=== PATIENT | male | born 1940 | race Caucasian/White ===

== ENCOUNTER 2025-04-20 09:20 | Inpatient (IN) ==
[2025-04-20 09:54] LABS: Basophils # (Auto) 0.04 K/mcL (0.00-0.30); Basophils % (Auto) 0.1 % (0.0-2.0); Eosinophils # (Auto) 0.11 K/mcL (0.00-0.70); Eosinophils % (Auto) 0.3 % (0.0-7.0); Hematocrit 28.6 % (40.1-51.0); Hemoglobin 8.9 g/dL (13.7-17.5); Lymphocytes # (Auto) 1.16 K/mcL (1.50-4.80); Lymphocytes % (Auto) 3.7 % (15.5-49.0); Mean Corpuscular HGB Conc 31.1 g/dL (31.0-36.0); Monocytes # (Auto) 1.41 K/mcL (0.10-0.90); Monocytes % (Auto) 4.5 % (1.0-12.0); Neutrophils % (Auto) 90.1 % (38.0-78.0); Platelet Count 310 K/mcL (140-440); RBC 3.06 M/mcL (4.63-6.08); WBC 31.5 K/mcL (4.5-11.0)
[2025-04-20 09:55] LABS: INR 1.2 (0.9-1.1); Prothrombin Time 16.1 sec (11.9-14.5)
[2025-04-20 10:09] LABS: ALT/SGPT 22 U/L (<40); AST/SGOT 24 U/L (<40); Albumin 3.1 gm/dL (3.2-5.2); Albumin/Globulin Ratio 0.8 (1.0-2.3); Alkaline Phosphatase 199 U/L (39-117); Anion Gap 11.0 (8.0-16.0); Bilirubin,Total 0.7 mg/dL (0.1-1.0); Blood Urea Nitrogen 52 mg/dL (8-23); Calcium 10.8 mg/dL (8.6-10.4); Carbon Dioxide 19 mmol/L (22-30); Chloride 99 mmol/L (96-108); Globulin 3.9 gm/dL (2.2-3.7); Glucose 97 mg/dL (70-105); Potassium 5.4 mmol/L (3.3-5.1); Sodium 129 mmol/L (133-145)
[2025-04-20] MEDS: HYDROmorphone 0.5 MG/0.5 ML SYRINGE IV ONE (10:16)
[2025-04-20] MEDS: CEFEPIME 2 GM VIAL IV ONE (11:42)
[2025-04-20 11:54] LABS: Bacteria,Urine Few /hpf (0); Bilirubin,Urine Negative (Negative); Color,Urine Yellow; Glucose,Urine (UA) Negative (Negative); Ketones,Urine Negative (Negative); Leukocyte Esterase,Urine Small /uL (Negative); PH,Urine 7.0 (5.0-9.0); Protein,Urine Negative (Negative); Specific Gravity,Urine 1.010 (1.000-1.035); Urobilinogen,Urine Normal
[2025-04-20] MEDS ORDERED: PROPOFOL 200 MG/20 ML VIAL IV ONE (12:04)
[2025-04-20] MEDS ORDERED: fentaNYL 100 MCG/2 ML VIAL ONE (12:04)
[2025-04-20] MEDS ORDERED: LIDOCAINE 2% PF 5 ML VIAL ONE (12:06)
[2025-04-20] MEDS ORDERED: TRANEXAMIC ACID 1,000 MG/10 ML VIAL ONE (12:06)
[2025-04-20] MEDS ORDERED: GLYCOPYRROLATE 0.2 MG/ML VIAL IV ONE (12:06)
[2025-04-20] MEDS ORDERED: ONDANSETRON 4 MG/2 ML VIAL ONE (12:06)
[2025-04-20] MEDS ORDERED: DEXAMETHASONE 10 MG/ML VIAL ONE (12:06)
[2025-04-20] MEDS ORDERED: FAMOTIDINE/PF 20 MG/2 ML VIAL IV ONE (12:07)
[2025-04-20] MEDS ORDERED: MAGNESIUM SULFATE 2 GM/50 ML BAG IV ONE (12:08)
[2025-04-20] MEDS: PIPERACILLIN SODIUM/TAZOBACTAM 2.25 GM in DEXTROSE 5% IN WATER 50 ML IV ONE (12:28)
[2025-04-20] MEDS ORDERED: 0.9 % SODIUM CHLORIDE 100 ML IV ONE (12:33)
[2025-04-20] MEDS ORDERED: VASOPRESSIN 20 UNIT/ML VIAL ONE (12:33)
[2025-04-20] MEDS ORDERED: PHENYLephrine 1 MG/10 ML SYRINGE (ANEST) ONE ×2 (12:45→14:17)
[2025-04-20] MEDS ORDERED: SUGAMMADEX SODIUM 200 MG/2 ML VIAL IV ONE (13:01)
[2025-04-20] MEDS ORDERED: ROCURONIUM 10 MG/ML ML IV ONE (13:02)
[2025-04-20] MEDS ORDERED: HYDROmorphone 0.5 MG/0.5 ML SYRINGE ONE (13:10)
[2025-04-20] MEDS: ceFAZolin 2 GM in DEXTROSE 5% IN WATER 50 ML IV SCH ×2 (13:15→21:52)
[2025-04-20 13:20] LABS: Bacteria,Urine Few /hpf (0); Bilirubin,Urine Negative (Negative); Color,Urine Yellow; Glucose,Urine (UA) Negative (Negative); Ketones,Urine Negative (Negative); Leukocyte Esterase,Urine Moderate /uL (Negative); PH,Urine 6.0 (5.0-9.0); Protein,Urine Negative (Negative); Specific Gravity,Urine 1.010 (1.000-1.035); Urobilinogen,Urine Normal
[2025-04-20] MEDS ORDERED: NALOXONE HCL 0.4 MG/ML VIAL IV PRN (15:06)
[2025-04-20] MEDS ORDERED: LACTATED RINGERS 250 ML IV PRN (15:06)
[2025-04-20] MEDS ORDERED: fentaNYL 100 MCG/2 ML VIAL IV PRN (15:06)
[2025-04-20] MEDS ORDERED: IPRATROPIUM/ALBUTEROL 3 ML AMPUL.NEB NEB PRN (15:06)
[2025-04-20] MEDS ORDERED: HYDROmorphone 0.5 MG/0.5 ML SYRINGE IV PRN (15:06)
[2025-04-20] MEDS ORDERED: BENZOCAINE/MENTHOL 1 LOZENGE PO PRN ×2 (15:06→16:21)
[2025-04-20] MEDS ORDERED: ONDANSETRON 4 MG/2 ML VIAL IV PRN ×2 (15:06→17:22)
[2025-04-20] MEDS: VANCOMYCIN 1 GM VIAL TOPICAL SCH ×2 (15:09→15:22)
[2025-04-20] MEDS: ACETAMINOPHEN 1,000 MG/100 ML BAG IV ONE (16:02)
[2025-04-20] MEDS: METHOCARBAMOL 1,000 MG/10 ML VIAL IV PRN (16:04)
[2025-04-20 16:39] LABS: Hematocrit 26.5 % (40.1-51.0); Hemoglobin 8.1 g/dL (13.7-17.5)
[2025-04-20] MEDS ORDERED: diphenhydrAMINE 50 MG/ML VIAL IV PRN (17:22)
[2025-04-20] MEDS: LACTATED RINGERS 1,000 ML IV SCH ×3 (17:42→21:55)
[2025-04-20 18:48] LABS: Albumin 2.8 gm/dL (3.2-5.2); Anion Gap 11.0 (8.0-16.0); Blood Urea Nitrogen 50 mg/dL (8-23); Calcium 10.5 mg/dL (8.6-10.4); Carbon Dioxide 19 mmol/L (22-30); Chloride 99 mmol/L (96-108); Glucose 126 mg/dL (70-105); Phosphorous 3.3 mg/dL (2.5-4.5); Potassium 5.5 mmol/L (3.3-5.1); Sodium 129 mmol/L (133-145)
[2025-04-20] MEDS: PIPERACILLIN SODIUM/TAZOBACTAM 3.375 GM in DEXTROSE 5% IN WATER 100 ML IV SCH (19:53)
[2025-04-20] MEDS: SODIUM ZIRCONIUM CYCLOSILICATE 10 GM PACKET PO SCH (20:20)
[2025-04-20] MEDS: SENNOSIDES 1 TABLET PO SCH (20:21)
[2025-04-20] MEDS: 0.9 % SODIUM CHLORIDE 10 ML SYRINGE IV SCH (20:21)
[2025-04-20] MEDS: SODIUM ZIRCONIUM CYCLOSILICATE 10 GM PACKET PO ONE (21:40)
[2025-04-20] MEDS: CYCLOBENZAPRINE 10 MG TABLET PO PRN (21:43)
[2025-04-20] MEDS: HYDROmorphone 0.5 MG/0.5 ML SYRINGE IV PRN (21:43)
[2025-04-20] MEDS: 0.9 % SODIUM CHLORIDE 250 ML IV SCH ×2 (21:52)
[2025-04-20] MEDS: ACETAMINOPHEN 1,000 MG/100 ML BAG IV SCH (21:56)
[2025-04-20] MEDS: ACETAMINOPHEN 500 MG TABLET PO SCH (21:58)
[2025-04-21] MEDS: METHOCARBAMOL 500 MG TABLET PO PRN (00:20)
[2025-04-21 06:31] LABS: ALT/SGPT 18 U/L (<40); AST/SGOT 47 U/L (<40); Albumin 2.6 gm/dL (3.2-5.2); Albumin/Globulin Ratio 0.8 (1.0-2.3); Alkaline Phosphatase 186 U/L (39-117); Anion Gap 12.0 (8.0-16.0); Bilirubin,Direct 0.3 mg/dL (<0.3); Bilirubin,Total 0.5 mg/dL (0.1-1.0); Blood Urea Nitrogen 48 mg/dL (8-23); Calcium 10.2 mg/dL (8.6-10.4); Carbon Dioxide 17 mmol/L (22-30); Chloride 100 mmol/L (96-108); Globulin 3.4 gm/dL (2.2-3.7); Glucose 100 mg/dL (70-105); Phosphorous 3.8 mg/dL (2.5-4.5); Potassium 6.2 mmol/L (3.3-5.1); Sodium 129 mmol/L (133-145); Triglycerides 59 mg/dL (<150); Uric Acid 7.2 mg/dL (2.5-8.0)
[2025-04-21] MEDS ORDERED: SODIUM BICARBONATE 50 MEQ/50 ML VIAL IV SCH (06:45)
[2025-04-21] MEDS: INSULIN REGULAR, HUMAN 1 UNIT/0.01 ML UNIT IV ONE (07:47)
[2025-04-21] MEDS: DEXTROSE 50% 50 ML VIAL IV ONE (07:48)
[2025-04-21 08:38] LABS: Basophils # (Auto) 0.01 K/mcL (0.00-0.30); Basophils % (Auto) 0 % (0.0-2.0); Eosinophils # (Auto) 0 K/mcL (0.00-0.70); Eosinophils % (Auto) 0 % (0.0-7.0); Hematocrit 24.0 % (40.1-51.0); Hemoglobin 7.6 g/dL (13.7-17.5); Lymphocytes # (Auto) 0.63 K/mcL (1.50-4.80); Lymphocytes % (Auto) 1.0 % (15.5-49.0); Mean Corpuscular HGB Conc 31.7 g/dL (31.0-36.0); Monocytes # (Auto) 0.93 K/mcL (0.10-0.90); Monocytes % (Auto) 1.5 % (1.0-12.0); Neutrophils % (Auto) 94.6 % (38.0-78.0); Platelet Count 313 K/mcL (140-440); RBC 2.59 M/mcL (4.63-6.08); WBC 62.5 K/mcL (4.5-11.0)
[2025-04-21] MEDS ORDERED: VANCOMYCIN PER PHARMACY IV SCH (08:45)
[2025-04-21] MEDS: APIXABAN 2.5 MG TABLET PO SCH (09:12)
[2025-04-21] MEDS: VANCOMYCIN 1,500 MG in 0.9 % SODIUM CHLORIDE 500 ML IV ONE (09:14)
[2025-04-21 10:13] LABS: Potassium 6.5 mmol/L (3.3-5.1)
[2025-04-21] MEDS ORDERED: NOREPINEPHRINE 250 ML IV SCH (10:15)
[2025-04-21] MEDS: LACTATED RINGERS 1,000 ML IV ONE (10:37)
[2025-04-21] MEDS: 0.9 % SODIUM CHLORIDE 250 ML IV SCH ×3 (11:19→17:08)
[2025-04-21] MEDS: NOREPINEPHRINE BITARTRATE 16 MG in 0.9 % SODIUM CHLORIDE 234 ML IV SCH (11:27)
[2025-04-21] MEDS: ACETAMINOPHEN 1,000 MG/100 ML BAG IV SCH (11:27)
[2025-04-21] MEDS: SODIUM POLYSTYRENE SULFONATE 15 GM/60 ML SUSPENSION PR ONE (11:27)
[2025-04-21 11:38] LABS: Sodium 128 mmol/L (133-145)
[2025-04-21] MEDS: NOREPINEPHRINE 250 ML IV SCH (12:40)
[2025-04-21] MEDS: SODIUM BICARBONATE VIAL 150 MEQ in WATER FOR INJECTION,STERILE 850 ML IV SCH (13:34)
[2025-04-21] MEDS: HYDROCORTISONE SOD SUCC 100 MG VIAL IV ONE (13:34)
[2025-04-21 13:41] LABS: Creatine Kinase 419 U/L (24-195)
[2025-04-21 13:44] LABS: Albumin 2.6 gm/dL (3.2-5.2); Anion Gap 10.0 (8.0-16.0); Blood Urea Nitrogen 50.0 mg/dL (8-23); Calcium 9.8 mg/dL (8.6-10.4); Carbon Dioxide 18.0 mmol/L (22-30); Chloride 99.0 mmol/L (96-108); Glucose 109.0 mg/dL (70-105); Phosphorous 4.1 mg/dL (2.5-4.5); Potassium 6.2 mmol/L (3.3-5.1); Sodium 127.0 mmol/L (133-145)
[2025-04-21 14:45] LABS: Potassium 6.3 mmol/L (3.3-5.1)
[2025-04-21 18:35] LABS: Potassium 6.0 mmol/L (3.3-5.1)
[2025-04-21] MEDS: HYDROCORTISONE SOD SUCC 100 MG VIAL IV SCH (21:23)
[2025-04-21 21:44] LABS: Potassium 5.3 mmol/L (3.3-5.1)
[2025-04-21 21:53] LABS: Creatine Kinase 504.0 U/L (24-195)
[2025-04-22 06:29] LABS: Basophils # (Auto) 0.11 K/mcL (0.00-0.30); Basophils % (Auto) 0.3 % (0.0-2.0); Eosinophils # (Auto) 0 K/mcL (0.00-0.70); Eosinophils % (Auto) 0 % (0.0-7.0); Hematocrit 24.8 % (40.1-51.0); Hemoglobin 8.2 g/dL (13.7-17.5); Lymphocytes # (Auto) 1.44 K/mcL (1.50-4.80); Lymphocytes % (Auto) 3.4 % (15.5-49.0); Mean Corpuscular HGB Conc 33.1 g/dL (31.0-36.0); Monocytes # (Auto) 1.41 K/mcL (0.10-0.90); Monocytes % (Auto) 3.3 % (1.0-12.0); Neutrophils % (Auto) 90.3 % (38.0-78.0); Platelet Count 267 K/mcL (140-440); RBC 2.81 M/mcL (4.63-6.08); WBC 42.8 K/mcL (4.5-11.0)
[2025-04-22 06:35] LABS: Creatine Kinase 540 U/L (24-195)
[2025-04-22 06:36] LABS: ALT/SGPT 7 U/L (<40); AST/SGOT 58 U/L (<40); Albumin 2.7 gm/dL (3.2-5.2); Albumin/Globulin Ratio 0.8 (1.0-2.3); Alkaline Phosphatase 135 U/L (39-117); Anion Gap 12.0 (8.0-16.0); Bilirubin,Direct 0.3 mg/dL (<0.3); Bilirubin,Total 0.5 mg/dL (0.1-1.0); Blood Urea Nitrogen 48 mg/dL (8-23); Calcium 9.9 mg/dL (8.6-10.4); Carbon Dioxide 24 mmol/L (22-30); Chloride 92 mmol/L (96-108); Globulin 3.6 gm/dL (2.2-3.7); Glucose 126 mg/dL (70-105); Phosphorous 4.7 mg/dL (2.5-4.5); Potassium 5.2 mmol/L (3.3-5.1); Sodium 128 mmol/L (133-145); Triglycerides 89 mg/dL (<150); Uric Acid 7.4 mg/dL (2.5-8.0)
[2025-04-22 07:52] LABS: Vancomycin,Random 15.9 ug/mL
[2025-04-22 14:55] LABS: Albumin 2.9 gm/dL (3.2-5.2); Anion Gap 13.0 (8.0-16.0); Blood Urea Nitrogen 49 mg/dL (8-23); Calcium 10.0 mg/dL (8.6-10.4); Carbon Dioxide 23 mmol/L (22-30); Chloride 91 mmol/L (96-108); Glucose 150 mg/dL (70-105); Phosphorous 4.3 mg/dL (2.5-4.5); Potassium 5.0 mmol/L (3.3-5.1); Sodium 127 mmol/L (133-145)
[2025-04-22] MEDS: HYDROmorphone 0.5 MG/0.5 ML SYRINGE IV PRN (21:58)
[2025-04-23 06:29] LABS: ALT/SGPT 6 U/L (<40); AST/SGOT 64 U/L (<40); Albumin 2.8 gm/dL (3.2-5.2); Albumin/Globulin Ratio 0.8 (1.0-2.3); Alkaline Phosphatase 114 U/L (39-117); Anion Gap 12.0 (8.0-16.0); Bilirubin,Total 0.7 mg/dL (0.1-1.0); Blood Urea Nitrogen 53 mg/dL (8-23); Calcium 10.0 mg/dL (8.6-10.4); Carbon Dioxide 24 mmol/L (22-30); Chloride 92 mmol/L (96-108); Globulin 3.4 gm/dL (2.2-3.7); Glucose 122 mg/dL (70-105); Potassium 4.6 mmol/L (3.3-5.1); Sodium 128 mmol/L (133-145)
[2025-04-23 06:33] LABS: Basophils # (Auto) 0.05 K/mcL (0.00-0.30); Basophils % (Auto) 0.2 % (0.0-2.0); Eosinophils # (Auto) 0 K/mcL (0.00-0.70); Eosinophils % (Auto) 0 % (0.0-7.0); Hematocrit 26.4 % (40.1-51.0); Hemoglobin 8.3 g/dL (13.7-17.5); Lymphocytes # (Auto) 1.29 K/mcL (1.50-4.80); Lymphocytes % (Auto) 4.0 % (15.5-49.0); Mean Corpuscular HGB Conc 31.4 g/dL (31.0-36.0); Monocytes # (Auto) 1.56 K/mcL (0.10-0.90); Monocytes % (Auto) 4.9 % (1.0-12.0); Neutrophils % (Auto) 87.2 % (38.0-78.0); Platelet Count 248 K/mcL (140-440); RBC 2.88 M/mcL (4.63-6.08); WBC 31.9 K/mcL (4.5-11.0)
[2025-04-23] MEDS: HYDROCORTISONE SOD SUCC 100 MG VIAL IV SCH (08:57)
[2025-04-23] MEDS: LACTULOSE 20 GM/30 ML ORAL.SOL PO PRN (08:58)
[2025-04-23 10:34] LABS: Free T3 1.6 pg/mL (2.0-4.4); Thyroid Stimulating Hormone 0.97 uIU/mL (0.27-5.01)
[2025-04-23] MEDS: LEVOTHYROXINE 100 MCG VIAL IV SCH (11:22)
[2025-04-23] MEDS: AMPICILLIN SODIUM 1 GM in 0.9 % SODIUM CHLORIDE 50 ML IV SCH (14:36)
[2025-04-23] MEDS: LIOTHYRONINE 5 MCG TABLET PO SCH (18:29)
[2025-04-23] MEDS: TAMSULOSIN 0.4 MG CAPSULE PO SCH (21:09)
[2025-04-24 06:50] LABS: ALT/SGPT 8 U/L (<40); AST/SGOT 66 U/L (<40); Albumin 2.9 gm/dL (3.2-5.2); Albumin/Globulin Ratio 0.9 (1.0-2.3); Alkaline Phosphatase 112 U/L (39-117); Anion Gap 13.0 (8.0-16.0); Bilirubin,Total 0.7 mg/dL (0.1-1.0); Blood Urea Nitrogen 57 mg/dL (8-23); Calcium 9.7 mg/dL (8.6-10.4); Carbon Dioxide 23 mmol/L (22-30); Chloride 91 mmol/L (96-108); Globulin 3.4 gm/dL (2.2-3.7); Glucose 118 mg/dL (70-105); Potassium 4.3 mmol/L (3.3-5.1); Sodium 127 mmol/L (133-145)
[2025-04-24 06:55] LABS: Basophils # (Auto) 0.06 K/mcL (0.00-0.30); Basophils % (Auto) 0.2 % (0.0-2.0); Eosinophils # (Auto) 0 K/mcL (0.00-0.70); Eosinophils % (Auto) 0 % (0.0-7.0); Hematocrit 27.3 % (40.1-51.0); Hemoglobin 8.9 g/dL (13.7-17.5); Lymphocytes # (Auto) 1.43 K/mcL (1.50-4.80); Lymphocytes % (Auto) 4.4 % (15.5-49.0); Mean Corpuscular HGB Conc 32.6 g/dL (31.0-36.0); Monocytes # (Auto) 1.82 K/mcL (0.10-0.90); Monocytes % (Auto) 5.6 % (1.0-12.0); Neutrophils % (Auto) 85.2 % (38.0-78.0); Platelet Count 231 K/mcL (140-440); RBC 3.09 M/mcL (4.63-6.08); WBC 32.3 K/mcL (4.5-11.0)
[2025-04-24] MEDS: LEVOTHYROXINE 25 MCG TABLET PO SCH (07:47)
[2025-04-24] MEDS: LIOTHYRONINE 5 MCG TABLET PO SCH (08:33)
[2025-04-24] MEDS: HYDROCORTISONE 10 MG TABLET PO SCH ×2 (08:34→21:42)
[2025-04-24] MEDS: AMPICILLIN SODIUM 2 GM in 0.9 % SODIUM CHLORIDE 100 ML IV SCH (08:49)
[2025-04-25 06:51] LABS: ALT/SGPT 8 U/L (<40); AST/SGOT 52 U/L (<40); Albumin 2.8 gm/dL (3.2-5.2); Albumin/Globulin Ratio 0.9 (1.0-2.3); Alkaline Phosphatase 102 U/L (39-117); Anion Gap 12.0 (8.0-16.0); Bilirubin,Total 0.7 mg/dL (0.1-1.0); Blood Urea Nitrogen 54 mg/dL (8-23); Calcium 9.5 mg/dL (8.6-10.4); Carbon Dioxide 22 mmol/L (22-30); Chloride 91 mmol/L (96-108); Globulin 3.2 gm/dL (2.2-3.7); Glucose 112 mg/dL (70-105); Potassium 4.1 mmol/L (3.3-5.1); Sodium 125 mmol/L (133-145)
[2025-04-25 07:41] LABS: Basophils # (Auto) 0.02 K/mcL (0.00-0.30); Basophils % (Auto) 0.1 % (0.0-2.0); Eosinophils # (Auto) 0.01 K/mcL (0.00-0.70); Eosinophils % (Auto) 0 % (0.0-7.0); Hematocrit 27.4 % (40.1-51.0); Hemoglobin 8.6 g/dL (13.7-17.5); Lymphocytes # (Auto) 1.30 K/mcL (1.50-4.80); Lymphocytes % (Auto) 3.9 % (15.5-49.0); Mean Corpuscular HGB Conc 31.4 g/dL (31.0-36.0); Monocytes # (Auto) 1.95 K/mcL (0.10-0.90); Monocytes % (Auto) 5.9 % (1.0-12.0); Neutrophils % (Auto) 86.2 % (38.0-78.0); Platelet Count 235 K/mcL (140-440); RBC 2.94 M/mcL (4.63-6.08); WBC 33.2 K/mcL (4.5-11.0)
[2025-04-25 12:28] VITALS: TEMP 97.3; O2SAT 97
== END 2025-04-25 13:43 | DRG 480 ==
LOC: ED 09:20 → SUR 11:57 → ICU 17:08 → MEDSUR 04-23 12:53
PROVIDERS: ADMIT Internal Medicine; ATTEND Internal Medicine